=== PATIENT | male | born 1960 | race Caucasian/White ===

== ENCOUNTER 2016-12-29 08:43 | Emergency (ER) | payer OTHER | END 2016-12-29 10:34 | disposition home or self-care (01) | LOC: ER 08:43 | DX: M17.11 Unilateral primary osteoarthritis, right knee (principal); W19.XXXA Unspecified fall, initial encounter; I51.9 Heart disease, unspecified; Z95.5 Presence of coronary angioplasty implant and graft; E11.9 Type 2 diabetes mellitus without complications; F17.210 Nicotine dependence, cigarettes, uncomplicated; Z79.82 Long term (current) use of aspirin; Z88.6 Allergy status to analgesic agent | CPT/HCPCS: 73564; 96372; 99070; 99283-25; J1170 ==

== ENCOUNTER 2017-01-01 08:58 | Emergency (ER) | payer OTHER | END 2017-01-01 09:25 | disposition home or self-care (01) | LOC: ER 08:58 | DX: B02.9 Zoster without complications (principal); G62.9 Polyneuropathy, unspecified; F17.210 Nicotine dependence, cigarettes, uncomplicated; Z88.6 Allergy status to analgesic agent; Z79.899 Other long term (current) drug therapy; Z79.82 Long term (current) use of aspirin; Z79.891 Long term (current) use of opiate analgesic | CPT/HCPCS: 99283 ==

== ENCOUNTER 2017-01-05 10:00 | Emergency (ER) | payer OTHER ==
[2017-01-05 11:18] LABS: BASO # 0.2 10_X3_uL (0.0-0.1); BASO % 2.4 % (0.2-1.2); EOS # 0.3 10_X3_uL (0.0-0.5); EOS % 4.2 % (0.8-7.0); GRAN # 4.6 10_X3_uL (1.8-5.4); GRAN % 66.7 % (34.0-67.9); HEMOGLOBIN 13.4 g/dL (13.7-17.5); LYMPH # 1.2 10_X3_uL (1.3-3.6); LYMPH % 17.8 % (21.8-53.1); MEAN CORPUSCULAR HEMOGLOBIN 31.5 pg (27.0-33.0); MEAN CORPUSCULAR HGB CONC 34.4 g/dL (32.0-36.0); MEAN CORPUSCULAR VOLUME 91.5 fL (79-92); MEAN PLATELET VOLUME 8.9 fl (7.5-11.5); MONO # 0.6 10_X3_uL (0.3-0.8); MONO % 8.9 % (5.3-12.2); PLATELET COUNT 339 x10_3/uL (163-337); RED BLOOD COUNT 4.26 x10_6/uL (4.6-6.1); RED CELL DISTRIBUTION WIDTH 12.5 % (11.6-14.4)
[2017-01-05 11:47] LABS: ALBUMIN 4.3 gm/dL (3.4-5.0); ALKALINE PHOSPHATASE 73 U/L (50-136); ALT/SGPT 34 U/L (7.53-40.17); AST/SGOT 19 U/L (6.66-35.34); BILIRUBIN,TOTAL 0.47 mg/dL (0.0-1.0); BLOOD UREA NITROGEN 12 mg/dL (7-18); CALCIUM 9.1 mg/dL (8.7-10.7); CARBON DIOXIDE 23 mmol/L (21-32); CREATININE < 0.5 mg/dL (0.6-1.3); GLUCOSE,RANDOM 347 mg/dL (70-99); POTASSIUM 4.4 mmol/L (3.5-5.1); SODIUM 130 mmol/L (136-145); TOTAL PROTEIN 6.6 gm/dL (6.4-8.2)
== END 2017-01-05 13:53 | disposition home or self-care (01) ==
LOC: ER 10:00
PROVIDERS: Family Medicine
DX: R07.89 Other chest pain (principal); I51.9 Heart disease, unspecified; E11.9 Type 2 diabetes mellitus without complications; Z88.8 Allergy status to other drugs, medicaments and biological substances; Z79.899 Other long term (current) drug therapy; Z79.82 Long term (current) use of aspirin; Z79.02 Long term (current) use of antithrombotics/antiplatelets; Z79.84 Long term (current) use of oral hypoglycemic drugs
CPT/HCPCS: 36415; 71250; 80053; 85025; 96372; 99283-25

== ENCOUNTER 2017-01-16 19:33 | Emergency (ER) | payer OTHER | END 2017-01-17 02:24 | disposition left against medical advice (07) | LOC: ER 19:33 | DX: Z53.21 Procedure and treatment not carried out due to patient leaving prior to being seen by health care provider (principal) | CPT/HCPCS: 99211 ==